=== PATIENT | male | born 1995 | race Two or more races ===

== ENCOUNTER 2022-09-05 09:09 | Outpatient (CLI) | payer OTHER ==
--- NOTE | 2022-09-05 16:22 | MRI Report ---
PROCEDURE: HAND WO - RT INDICATIONS: PAIN IN RIGHT HAND TECHNIQUE: Noncontrast coronal T1 spin echo and T2 fast spin echo with fat saturation, axial proton density fast spin echo and T2 fast spin echo with fat saturation, sagittal T1 spin echo and STIR through the hand and fingers. COMPARISON: None. FINDINGS: Image quality: Excellent. Bones: The bones are normally aligned, without marrow contusions or fractures. No intra-osseous les ions. Interphalangeal joint(s): The accessory and proper collateral ligaments appear intact. The volar pl ate demonstrates normal morphology. The extensor central slips appear intact on sagittal images. Metacarpophalangeal joint(s): The accessory and proper collateral ligaments appear intact, as well a s the volar plate and adjacent deep transverse metacarpal ligaments. There is suggestion of disruptio n involving ulnar sagittal band of the extensor nguyen of third MTP joint. Extensor apparatus: The central slips insert normally on the middle phalangeal base. The conjoint a nd terminal tendons insert normally on the distal phalangeal bases. Thickened extensor tendon over do rsal aspect of third metacarpal head with mild surrounding soft tissue edema is seen. Flexor apparatus: The flexor digitorum superficialis and profundus tendons both appear intact. All annular and cruciform pulleys appear intact, without adjacent soft tissue edema. Soft tissues: Visualized muscles demonstrate normal bulk and internal signal. No intramuscular mass es identified. No ganglion cysts. IMPRESSION: 1. Suggestion of mild tendinosis involving extensor tendon of third digit at the level of third metac arpal head/MCP joint. 2. Suggestion of at least partially torn ulnar sagittal band of third MCP joint extensor fluid. 3. Medial and lateral collateral ligaments of third MCP joint are grossly intact. 4. No marrow edema. No fracture or dislocation. No suspicious bony lesion. Reviewed by: David Weber MD on 09/05/2022 4:21 PM PDT Approved by: David Weber MD on 09/05/2022 4:21 PM PDT Station ID: [id number]
== END 2022-09-05 09:10 | disposition home or self-care (01) ==
LOC: DI 09:09
PROVIDERS: ATTEND Nurse Practitioner Family
DX: M79.641 Pain in right hand (principal); R93.6 Abnormal findings on diagnostic imaging of limbs